=== PATIENT | female | born 1975 | race African-American/Black ===

== ENCOUNTER 2016-12-28 09:25 | Emergency (ER) | payer OTHER, MEDICAID ==
[~2016-12-28] VITALS: Ht 172.7 cm; Wt 118.2 kg
[2016-12-28] MEDS ORDERED: AMLO2.5T45 PO (09:42)
[2016-12-28] MEDS ORDERED: PRAV20TA57 PO (09:43)
[2016-12-28] MEDS ORDERED: DICY10CA59 PO (09:43)
[2016-12-28] MEDS ORDERED: ALBUTEROL (0.083%) 2.5MG/3ML NEB HHN STA (11:50)
[2016-12-28] MEDS ORDERED: NAPROXEN 500MG TABLET PO ONE (12:00)
[2016-12-28 12:06] VITALS: BP 147/80
== END 2016-12-28 12:45 | disposition home or self-care (01) ==
LOC: ER 10:19
DX: R09.1 Pleurisy (principal); I10 Essential (primary) hypertension; J45.909 Unspecified asthma, uncomplicated
CPT/HCPCS: 71010; 93005; 94640; 99284; J7611; Z7610

== ENCOUNTER 2022-03-14 17:00 | Emergency (ER) | payer MEDICAID, OTHER ==
[~2022-03-14] VITALS: Ht 170.2 cm; Wt 102.0 kg
[~2022-03-14 17:00] MED LIST: AMLO2.5T45 PO; DICY10CA59 PO; PRAV20TA57 PO
[2022-03-14 17:43] VITALS: BP 152/73
[2022-03-14] MEDS ORDERED: LIDOCAINE HCL/EPINEPHRINE 1%-EPI 1:100,000 20 ML VIAL INFIL ONE (20:30)
[2022-03-14] MEDS ORDERED: BACITRACIN ZINC OINT UDPKT TOP ONE (20:30)
[2022-03-14] MEDS ORDERED: CEPH500C2 MT (21:55)
== END 2022-03-14 21:59 | disposition left against medical advice (07) ==
LOC: ER 17:00
DX: S61.512A Laceration without foreign body of left wrist, initial encounter (principal); I10 Essential (primary) hypertension; W45.8XXA Other foreign body or object entering through skin, initial encounter; Y93.89 Activity, other specified; Y92.018 Other place in single-family (private) house as the place of occurrence of the external cause
CPT/HCPCS: 12002; 73130; 99283; J3490